=== PATIENT | female | born 1995 | race Caucasian/White ===

== ENCOUNTER 2017-05-22 23:09 | Emergency (ER) | payer BC, OTHER ==
--- NOTE | 2017-05-22 23:42 | EDPHY ---
General Time Seen by Provider: 05/22/17 23:37 Narrative: CHIEF COMPLAINT: Lower leg pain and swelling HISTORY OF PRESENT ILLNESS: Patient complains of 3 weeks duration of lower extremity pain and swelling with recent diagnosis of infectious mononucleosis. She was seen at [facility] recently with diagnosis of infectious mononucleosis as well as erythema nodosum. She reportedly had a chest x-ray that was normal there. She was instructed to take anti-inflammatories, use warm compresses and Epsom salt soaks. She has been told to avoid Tylenol. She has done so with no improvement. She has increasing pain over the past few days. She has increasing swelling of the ankles that is symmetric. She also has increasing nodules of the lower extremities. No chest pain. No shortness of breath. No abdominal pain. She is concerned as she has increasing pain with ambulation. She is unable to walk due to the pain. She is able to move the extremities and has no sensory complaints. No other associated complaints or modifying factors. 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 Cardiovascular: Regular rate and rhythm. Symmetric DP pulses 2+. Symmetric PT pulses 2+. Gastrointestinal: Abdomen is soft and nondistended. Back: non-tender, no bony abnormalities Neurological: A&O, nonfocal, normal gait. Sensory symmetric in the lower extremities. There is symmetric strength of the great toes. No footdrop. Strength is 5/5 in the ankles and knees. Patellar reflexes symmetric. Skin: Warm and dry. Multiple areas of circular nodules to the lower extremities that fully raymond. No circumferential rash. No petechiae. No purpura. No lesions to the palms of the hands or soles of the feet. Extremities: Nontender, no pedal edema Psychiatric: Mood and affect normal DIFFERENTIAL DIAGNOSES: Including but not limited to erythema nodosum, viral exanthem, DVT, Guillain- Forman, infectious mononucleosis MDM: 11:40 p.m. Lower extremity pain consistent with her erythema nodosum. Vital signs are within normal limits. She has no neuro deficits the lower extremities. No evidence of DVT. She has already had a chest x-ray that reportedly showed no evidence of any cavitary lesions or signs of infection. I have ordered p.o. Pain medication and will consult with Dr. Mtz. 12:20 a.m. Erythema nodosum with recent infectious mononucleosis. Vital signs are within normal limits. I do not appreciate any evidence of desquamating dermatitis, Balaji Esvin's or TEN. She has No neuro deficits. I do not feel she has any neuro pathology of the lower extremities. She has had a dose of Percocet and I have ordered a dose of dexamethasone. We discussed discharge home with further pain medication, crutches for improved ambulation, ibuprofen 600 mg every 6 hr and a referral to our [facility]. We discussed returning here for pain does not improve in the next 12-24 hours through discussed returning here for any motor or sensory changes of the lower extremities. We also discussed return here for any fever, chest pain, shortness of breath or abdominal pain. I do feel she is stable for discharge home with a likely viral etiology of her pain. I do not feel she has a DVT. I discussed this with Dr. Mtz, any agrees with the plan. The patient is also comfortable this plan and discharged home stable condition. SUPERVISION: Patient was independently examined, but I discussed the case with my secondary supervising physician Dr. Mtz - History Smoking Status: Never smoked - Objective Vital Signs: Initial Vital Signs Temperature (C) 98.8 F 05/22/17 23:17 Heart Rate 86 05/22/17 23:17 Respiratory Rate 16 05/22/17 23:17 Blood Pressure 125/65 H 05/22/17 23:17 O2 Sat (%) 97 05/22/17 23:17 O2 Delivery Mode Room Air Allergies/Adverse Reactions: amoxicillin [From Augmentin] Allergy (Verified 05/22/17 23:22) clavulanic acid [From Augmentin] Allergy (Verified 05/22/17 23:22) pineapple Allergy (Verified 05/22/17 23:22) prednisone Allergy (Verified 05/22/17 23:22) Home Medications: Medication Instructions Recorded Citalopram 05/22/17 Trokendi Xr 05/22/17 oxyCODONE HCL/ACETAMINOPHEN 1 each PO Q4-6PRN PRN #7 tablet 05/23/17 [Percocet 5-325 mg Tablet] Medications Given: Discontinued Medications Dexamethasone (Decadron) 8 mg PO EDNOW ONE Stop: 05/23/17 00:17 Last Admin: 05/23/17 00:24 Dose: 8 mg Ondansetron HCl (Zofran Odt) 4 mg PO EDNOW ONE Stop: 05/23/17 00:09 Last Admin: 05/23/17 00:10 Dose: 4 mg Ondansetron HCl (Zofran Odt 4 Mg Prepack#2) 1 btl TAKEHOME EDNOW ONE Stop: 05/23/17 00:09 Last Admin: 05/23/17 00:10 Dose: 1 btl Oxycodone/Acetaminophen (Percocet 5/325) 2 tab PO EDNOW ONE Stop: 05/23/17 00:00 Last Admin: 05/23/17 00:05 Dose: 2 tab Oxycodone/Acetaminophen (Percocet 5/325mg Prepack#4) 1 btl TAKEHOME EDNOW ONE Stop: 05/23/17 00:01 Last Admin: 05/23/17 00:06 Dose: 1 btl Departure - Departure Disposition: Home, Routine, Self-Care Clinical Impression: Erythema nodosum Condition: Good Instructions: Erythema Infectiosum (ED) Additional Instructions: 1. Ibuprofen 600 mg every 6 hr 2. Percocet pain medication as prescribed as needed 3. Contact infectious disease clinic for outpatient evaluation on Wednesday 4. Return here for any paresthesia, anesthesia or motor changes of the lower extremity. 5. Return here for any fever, chest pain, shortness of breath 6. Potassium iodide over the counter. 300mg by mouth every 8 hours for one week Referrals: NONE *PRIMARY CARE P,. [Primary Care Provider] - As per Instructions [facility] (ED,. [Edm Groups for Call Sched] - As per Instructions Nando Grant MD [Medical Doctor] - As per Instructions Stand Alone Forms: School Excuse Prescriptions: oxyCODONE HCL/ACETAMINOPHEN [Percocet 5-325 mg Tablet] 1 each PO Q4-6PRN PRN #7 tablet PRN Reason: Pain, Breakthrough
[2017-05-22] MEDS ORDERED: OXYCODONE/APAP 5/325 TAB PO ONE (23:59)
[2017-05-23] MEDS ORDERED: OXYCODONE/APAP 5/325MG PREPACK#4 BTL TAKEHOME ONE ×2 (00:03)
[2017-05-23] MEDS ORDERED: ONDANSETRON 4MG PREPACK#2 BTL TAKEHOME ONE (00:08)
[2017-05-23] MEDS ORDERED: ONDANSETRON DISINTEGRATING 4 MG TAB PO ONE (00:08)
[2017-05-23] MEDS ORDERED: DEXAMETHASONE 4 MG TAB PO ONE (00:16)
[2017-05-23 00:41] VITALS: BP 120/86
== END 2017-05-23 00:42 | disposition home or self-care (01) ==
DX: L52 Erythema nodosum (principal)

== ENCOUNTER 2018-05-23 08:47 | Emergency (ER) | payer BC, OTHER ==
[2018-05-23 08:52] VITALS: BP 122/82
--- NOTE | 2018-05-23 09:05 | EDPHY ---
H & P Stated Complaint: left ankle injury while climbing this morning Time Seen by Provider: 05/23/18 09:02 HPI/ROS: HPI: This is a 23-year-old female who presents with Chief Complaint: left ankle injury while climbing this morning Location: Left lateral ankle Quality: Injury and pain Duration: 1 hr prior to arrival Signs and Symptoms: No bleeding, no radiation, no numbness, no weakness, no tingling, no incontinence, + decreased range of motion, + swelling, + pain, no fever Timing: Acute, worsening Severity: 6 out 10 Context: Patient reports that she woke up early this morning to go hiking with her boyfriend when she lost her balance and tripped twisting her left ankle. She reports that her ankle twisted and everted with constant, severe, nonradiating pain. She reports that she heard a "cracking sound." Pain is increased with weight-bearing. She reports that she had to have the help of her boyfriend to distribute her weight in order to hike out of the trail. She has prior history of ankle sprains on the left ankle. Denies LOC/head injury/ neck pain/dizziness/nausea/vomiting/amnesia. Modifying Factors: Ibuprofen 600 mg and 2 CBD gummies Comment: ROS: A comprehensive 10 system review of systems is otherwise negative aside from elements mentioned in the history of present illness. MEDICAL/SURGICAL/SOCIAL HISTORY: Medical history: Migraine headache. LMP 1-2 weeks ago. Surgical history: Denies Social history: PhD student at [employer]. Denies alcohol and drug use. CONSTITUTIONAL: Young adult white female, polite and cooperative, awake and alert, no obvious distress HEENT: Atraumatic and normocephalic, PERRL, EOMI. Nares patent; no rhinorrhea; no nasal mucosal edema. Tympanic membranes clear. Oropharynx clear, no exudate and moist pink mucosa. Airway patent. No lymphadenopathy. No meningismus. Cardiovascular: Normal S1/S2, mild tachycardia, regular rhythm, without murmur rub or gallop. PULMONARY/CHEST: Symmetrical and nontender. Clear to auscultation bilaterally. Good air movement. No accessory muscle usage. ABDOMEN: Soft, nondistended, nontender, no rebound, no guarding, no peritoneal signs, no masses or organomegaly. No CVAT. EXTREMITIES: 2/2 pulses, strength 5/5, left Ankle: Moderate lateral malleolus swelling, Plantar flexion to 50, dorsiflexion to 20. Foot inversion to 35 degree. Moderate tenderness/swelling Anterior talofibular ligament. Mild tenderness/swelling Calcaneofibular ligament, no tenderness/swelling posterior talofibular ligament, no tenderness/swelling posterior inferior tibiofibular ligament. Achilles tendon intact. no deformities, no clubbing, no cyanosis or edema. NEUROLOGICAL: no focal neuro deficits. GCS 15. SKIN: Warm and dry, no erythema. no rash. Good capillary refill. Source: Patient Exam Limitations: No limitations - Personal History LMP (Females 10-55): 8-14 Days Ago - Medical/Surgical History Hx Asthma: No Hx Chronic Respiratory Disease: No Hx Diabetes: No Hx Cardiac Disease: No Hx Renal Disease: No Hx Cirrhosis: No Hx Alcoholism: No Hx HIV/AIDS: No Hx Splenectomy or Spleen Trauma: No Other PMH: migraines, PE, erythema - Social History Smoking Status: Never smoked Constitutional: Initial Vital Signs Temperature (C) 36.7 C 05/23/18 08:50 Heart Rate 107 H 05/23/18 08:50 Respiratory Rate 20 05/23/18 08:50 Blood Pressure 122/82 H 05/23/18 08:50 O2 Sat (%) 96 05/23/18 08:50 O2 Delivery Mode Room Air Allergies/Adverse Reactions: amoxicillin [From Augmentin] Allergy (Verified 05/23/18 08:49) clavulanic acid [From Augmentin] Allergy (Verified 05/23/18 08:49) pineapple Allergy (Verified 05/23/18 08:49) prednisone Allergy (Verified 05/23/18 08:49) Home Medications: Medication Instructions Recorded Citalopram 05/22/17 Trokendi Xr 05/22/17 Celexa 05/23/18 Erenumab-Aooe [Aimovig 70 mg SQ 05/23/18 Autoinjector] Spironolactone 05/23/18 Medical Decision Making - Diagnostics Imaging Results: Imaging Impressions Ankle X-Ray 05/23/18 08:58 Impression: No acute osseous findings. Procedures: Procedure: Splint placement. A left Mirza boot was applied. After application of the splint I returned and re-examined the patient. The splint was adequately immobilizing the joint and distal to the splint the patient's circulation and sensation was intact. ED Course/Re-evaluation: Left ankle x-ray ordered and ice pack applied. 0922: Left ankle x-ray my read shows no fracture, dislocation. Moderate soft tissue swelling on the lateral aspect over the malleolus appreciated. Placed in walking boot, crutches, orthopedic follow-up as needed No signs of neurovascular compromise/tenting of skin/compartment syndrome/ extremities and joints examined above and below area of concern and are neurovascularly intact. This patient was seen under the supervision of my primary supervising physician. I evaluated care for this patient independently. Differential Diagnosis: Ankle injury differential diagnosis includes but is not limited to tibia fracture, fibula fracture, metatarsal fracture, LisFranc fracture, achilles tendon rupture, sprain. Departure - Departure Disposition: Home, Routine, Self-Care Clinical Impression: Left ankle sprain Qualifiers: Encounter type: initial encounter Involved ligament of ankle: calcaneofibular ligament Qualified Code(s): S93.412A - Sprain of calcaneofibular ligament of left ankle, initial encounter Condition: Good Instructions: Ankle Sprain (ED), Crutch Instructions (ED) Additional Instructions: Wear the walking boot while out of bed until pain free. Use crutches to aid ambulation. Start with toe-touch weight-bearing status. Take Tylenol 650 mg every 4 hours and/or Ibuprofen 600 mg every 8 hours with food as needed for pain. Apply ice for 30 minutes at a time; 2-3 times per day for the next 1-2 days. Follow up with Orthopedics in 1-2 weeks if symptoms persist at which time they will evaluate and recommend with you if conservative management versus further imaging is indicated. The x-rays obtained in the emergency department today demonstrate no evidence of an obvious fracture. Sometimes fractures are not obvious on the initial set of x-rays performed in the ED. For this reason, you should have repeat x-rays performed in 7-10 days if you are having any pain exclude the possibility of an occult fracture. Referrals: Naila Liz MD [Medical Doctor] - Follow Up Only If Needed
== END 2018-05-23 09:34 | disposition home or self-care (01) ==
DX: S93.412A Sprain of calcaneofibular ligament of left ankle, initial encounter (principal); X50.1XXA Overexertion from prolonged static or awkward postures, initial encounter; Y92.89 Other specified places as the place of occurrence of the external cause; Y93.01 Activity, walking, marching and hiking
CPT/HCPCS: L4386